=== PATIENT | female | born 1990 | race Two or more races ===

== ENCOUNTER 2023-06-16 14:49 | Outpatient (CLI) | payer OTHER | END 2023-06-16 14:50 | disposition home or self-care (01) | LOC: PRENATAL 14:49 | PROVIDERS: ATTEND Obstetrics & Gynecology Maternal & Fetal Medicine | DX: O36.80X0 Pregnancy with inconclusive fetal viability, not applicable or unspecified (principal); O26.20 Pregnancy care for patient with recurrent pregnancy loss, unspecified trimester; O99.280 Endocrine, nutritional and metabolic diseases complicating pregnancy, unspecified trimester; Z3A.01 Less than 8 weeks gestation of pregnancy ==

== ENCOUNTER 2023-06-23 06:16 | Emergency (ER) | payer OTHER ==
[~2023-06-23] VITALS: Ht 157.5 cm; Wt 80.7 kg
[2023-06-23] MEDS ORDERED: SYNTHROID150 MCG PO (06:27)
[2023-06-23 08:06] LABS: HEMATOCRIT 34.7 % (36.0-45.00); HEMOGLOBIN 12.2 g/dL (12.0-15.00); MEAN CELL VOLUME 94.2 fL (80.00-100.00); PLATELET COUNT 265 K/uL (150-450); RED BLOOD COUNT 3.69 M/uL (4.00-6.00); RED CELL DISTRIBUTION WIDTH 15.7 % (11.5-14.5)
[2023-06-23 08:23] LABS: URINE APPEARANCE Cloudy; URINE BILIRRUBIN Small (NEGATIVE); URINE BLOOD Large; URINE COLOR Orange; URINE GLUCOSE Negative (NEGATIVE); URINE LEUKOCYTE Small; URINE NITRATE Negative; URINE UROBILINOGEN 0.2 E.U./dl
[2023-06-23 08:27] LABS: URINE EPITHELIAL CELLS 14.6 uL (0.0-38.8); URINE WBC 99.8 uL (0.0-23.2)
[2023-06-23 08:30] LABS: URINE PROTEIN 100 (NEGATIVE)
[2023-06-23 08:34] LABS: INR 1.22; PARTIAL THROMBOPLASTIN TIME 26.5 SECONDS (22.0-34.0); PROTHROMBIN TIME 12.6 SECONDS (9.0-11.5)
[2023-06-23 09:03] LABS: CALCIUM 8.7 mg/dL (8.5-10.1); CREATININE SERUM 0.7 mg/dL (0.55-1.02); GFR 95.79; POTASSIUM 3.67 mEq/L (3.5-5.1)
== END 2023-06-24 09:37 | disposition home or self-care (01) ==
LOC: ER 06:16
PROVIDERS: General Practice
DX: O20.8 Other hemorrhage in early pregnancy (principal); Z3A.08 8 weeks gestation of pregnancy; Z91.040 Latex allergy status

== ENCOUNTER 2023-10-04 11:56 | Outpatient (CLI) | payer OTHER ==
[~2023-10-04 11:56] MED LIST: SYNTHROID150 MCG PO
== END 2023-10-04 11:57 | disposition home or self-care (01) ==
LOC: PRENATAL 11:56
PROVIDERS: ATTEND Obstetrics & Gynecology Maternal & Fetal Medicine
DX: O36.80X0 Pregnancy with inconclusive fetal viability, not applicable or unspecified (principal); O26.20 Pregnancy care for patient with recurrent pregnancy loss, unspecified trimester; O26.859 Spotting complicating pregnancy, unspecified trimester; O09.529 Supervision of elderly multigravida, unspecified trimester; O99.280 Endocrine, nutritional and metabolic diseases complicating pregnancy, unspecified trimester; Z3A.01 Less than 8 weeks gestation of pregnancy

== ENCOUNTER 2024-12-05 14:30 | Inpatient (IN) | payer OTHER ==
[~2024-12-05] VITALS: Ht 157.5 cm; Wt 74.8 kg
[2024-12-05] MEDS ORDERED: IRON325 MG (15:30)
--- NOTE | 2024-12-05 15:30 | NUR ---
PACIENTE ALERTA Y ORIENTADA X 3. REFIERE DOLOR DE JCARLOS, CORPORAL Y RESULTADO DE HGB EN 5.60 HEMATO 17.10 Y PLAQUETAS EN 162.00 RESULTADO DE HOY. PACIENTE REFIERE PADECER DE DE PROBLEMAS EN LA LEXY. PACIENTE CON DOCUMENTO QUE INDICA (IF TRANSFUSION IS REQUIRED SHE WILL NEED IhA DEFICIENTE DONORS)
[2024-12-05 17:36] LABS: INR 1.31; PARTIAL THROMBOPLASTIN TIME 24.2 SECONDS (22.0-34.0)
[2024-12-05 17:39] LABS: URINE APPEARANCE Cloudy; URINE BILIRRUBIN Negative (NEGATIVE); URINE BLOOD Negative; URINE COLOR Yellow; URINE GLUCOSE Negative (NEGATIVE); URINE KETONE Negative (NEGATIVE); URINE LEUKOCYTE Moderate; URINE NITRATE Negative; URINE PROTEIN Negative (NEGATIVE)
[2024-12-05 17:40] LABS: ALBUMIN 3.7 gm/dL (3.4-5.0); BILIRUBIN TOTAL 2.19 mg/dL (0.3-1.2); CALCIUM 8.6 mg/dL (8.5-10.1); CREATININE SERUM 0.74 mg/dL (0.55-1.02); GFR 88.8; GLOBULINA 3.7 G/DL (2.4-3.5); POTASSIUM 3.87 mEq/L (3.5-5.1); TOTAL PROTEIN 7.4 gm/dL (6.4-8.2)
[2024-12-05 17:43] LABS: URINE WBC 234.4 uL (0.0-23.2)
[2024-12-05 17:52] LABS: COVID-19 AG NEGATIVE (NEGATIVE)
[2024-12-05 17:55] LABS: MEAN CELL VOLUME 102.1 fL (80.00-100.00); MEAN CORPUSCULAR HGB CONC 32.4 g/dl (32.0-36.0); PLATELET COUNT 168 K/uL (150-450); RED BLOOD COUNT 1.72 M/uL (4.00-6.00)
[2024-12-05 18:00] LABS: MEAN CORPUSCULAR HEMOGLOBIN 33.1 pg (27.00-32.0)
[2024-12-05 18:01] LABS: HEMOGLOBIN 5.7 g/dL (12.0-15.00)
[2024-12-05 18:02] LABS: HEMATOCRIT 17.5 % (36.0-45.00); RED CELL DISTRIBUTION WIDTH 19.6 % (11.5-14.5)
[2024-12-05 18:13] LABS: URINE BACTERIA > 9821.5 uL (0.0-1933); URINE EPITHELIAL CELLS > 201.7 uL (0.0-38.8); URINE RBC 1.3 uL (0.0-20.8)
[2024-12-05] MEDS ORDERED: 0.9 % SODIUM CHLORIDE 1,000 ML IV SCH (20:30)
[2024-12-05] MEDS ORDERED: IRON FUM,PS/FOLIC/BCOMP,C NO.9 1 CAP CAPSULE PO SCH (20:31)
[2024-12-05] MEDS ORDERED: SOD FERRIC GLUC COMPLX/SUCROSE 62.5 MG in 0.9 % SODIUM CHLORIDE 50 ML IV SCH (20:32)
[2024-12-05] MEDS ORDERED: ACETAMINOPHEN 500 MG GEL..CAP PO PRN (20:45)
[2024-12-06 00:21] VITALS: BP 120/70; O2SAT 100
[2024-12-06] MEDS ORDERED: LEVOTHYROXINE SODIUM 300 MCG PO SCH (06:00)
[2024-12-06 07:14] VITALS: BP 110/78; O2SAT 99
[2024-12-06] MEDS ORDERED: PANTOPRAZOLE SODIUM 40 MG/VIAL VIAL IV SCH (09:00)
[2024-12-06 16:00] VITALS: BP 105/68; O2SAT 99
[2024-12-06] MEDS ORDERED: Cyanocobalamin/Mecobalamin 1 TAB.SL SL SCH (20:10)
[2024-12-07 00:56] VITALS: BP 96/52; O2SAT 100
[2024-12-07 08:00] VITALS: BP 113/73; O2SAT 100
[2024-12-07 16:00] VITALS: BP 102/61; O2SAT 98
[2024-12-07 16:12] LABS: ob NEGATIVE (NEGATIVE)
[2024-12-08 00:28] VITALS: BP 91/54; O2SAT 100
[2024-12-08] MEDS ORDERED: DIPHENHYDRAMINE HCL 50 MG/ML VIAL 1ML IV STA (01:54)
[2024-12-08] MEDS ORDERED: DIPHENHYDRAMINE HCL 50 MG/ML VIAL 1ML IV SCH (02:00)
[2024-12-08 08:00] VITALS: BP 108/70; O2SAT 99
[2024-12-08] MEDS ORDERED: METHYLPREDNISOLONE SOD SUCC 40 MG VIAL IV SCH (09:45)
[2024-12-08 16:31] VITALS: BP 126/65; O2SAT 100
[2024-12-08] MEDS ORDERED: PREDNISONE 20 MG TABLET PO SCH (17:00)
[2024-12-09 00:27] VITALS: BP 103/62; O2SAT 100
[2024-12-09 08:05] LABS: PLATELET ESTIMATE NORMAL (NORMAL)
[2024-12-09 08:27] VITALS: BP 102/64; O2SAT 100
[2024-12-09 17:00] VITALS: BP 108/71; O2SAT 98
[2024-12-09 18:24] LABS: HEMATOCRIT 28.9 % (36.0-45.00); MEAN CELL VOLUME 92.3 fL (80.00-100.00); RED BLOOD COUNT 3.13 M/uL (4.00-6.00); RED CELL DISTRIBUTION WIDTH 19.9 % (11.5-14.5)
[2024-12-09 18:46] LABS: HEMOGLOBIN 9.5 g/dL (12.0-15.00); MEAN CORPUSCULAR HEMOGLOBIN 30.3 pg (27.00-32.0); PLATELET COUNT 109 K/uL (150-450)
[2024-12-10] VITALS: BP 111/70; O2SAT 97
[2024-12-10] MEDS ORDERED: LEVOTHYROXINE SODIUM 200 MCG TABLET PO ONE (01:15)
[2024-12-10] MEDS ORDERED: LEVOTHYROXINE SODIUM 100 MCG TABLET PO ONE (01:15)
[2024-12-10 08:00] VITALS: BP 107/69; O2SAT 98
[2024-12-10] MEDS ORDERED: PREDNISONE20 MG PO (13:55)
[2024-12-10] MEDS ORDERED: PROTONIX40 MG PO (13:55)
== END 2024-12-10 14:55 | disposition home or self-care (01) | DRG 815 ==
LOC: ER 14:31 → SEC-K 21:03 → SURH 12-06 10:52
PROVIDERS: Emergency Medicine; Internal Medicine Hematology & Oncology; ADMIT Internal Medicine; ATTEND Internal Medicine
PROC: BU4CZZZ Ultrasonography of Uterus and Ovaries (ICD-10-PCS; principal; 2024-12-05)
PROC: BW40ZZZ Ultrasonography of Abdomen (ICD-10-PCS; 2024-12-07)
PROC: 30233N1 Transfusion of Nonautologous Red Blood Cells into Peripheral Vein, Percutaneous Approach (ICD-10-PCS; 2024-12-08)
DX: D80.2 Selective deficiency of immunoglobulin A [IgA] (principal); D59.19 Other autoimmune hemolytic anemia; D68.61 Antiphospholipid syndrome; N91.2 Amenorrhea, unspecified; E03.8 Other specified hypothyroidism

== ENCOUNTER 2025-03-19 07:33 | Outpatient (CLI) | payer OTHER ==
[~2025-03-19 07:33] MED LIST changes: +IRON325 MG; +PREDNISONE20 MG PO; +PROTONIX40 MG PO
== END 2025-03-19 07:35 | disposition home or self-care (01) ==
LOC: SONOGRAMA 07:33
PROVIDERS: ATTEND Internal Medicine Hematology & Oncology
DX: R16.2 Hepatomegaly with splenomegaly, not elsewhere classified (principal); D59.10 Autoimmune hemolytic anemia, unspecified

== ENCOUNTER 2025-04-29 11:00 | Day surgery (SDC) | payer OTHER ==
[2025-04-23 08:14] VITALS: BP 107/69
[2025-04-23 08:43] LABS: BASO % 0.5 % (0.1-1.2); EOS # 0.07 (0.04-0.54); EOS % 1.1 % (0.7-7.0); LYMPH # 0.83 (1.18-3.74); LYMPH % 12.8 % (19.3-53.1); MEAN PLATELET VOLUME 11.10 fl (9.4-12.4); MONO # 0.27 (0.24-0.82); MONO % 4.2 % (4.7-12.5); NEUT # 5.26 (1.56-6.13); NEUT % 81.1 % (34.0-71.1); RED CELL DISTRIBUTION WIDTH 13.8 % (11.6-14.4)
[2025-04-23 08:44] LABS: URINE APPEARANCE Cloudy; URINE BILIRRUBIN Negative (NEGATIVE); URINE BLOOD Negative; URINE COLOR Dark Yellow; URINE GLUCOSE Negative (NEGATIVE); URINE KETONE Trace (NEGATIVE); URINE LEUKOCYTE Small; URINE NITRATE Negative; URINE PROTEIN Trace (NEGATIVE); URINE UROBILINOGEN 0.2 E.U./dl
[2025-04-23 08:49] LABS: URINE BACTERIA 3531.5 uL (0.0-1933); URINE EPITHELIAL CELLS 90.6 uL (0.0-38.8); URINE WBC 66.1 uL (0.0-23.2)
[2025-04-23 09:07] LABS: URINE CAST 0.00 uL (0.0-1.40); URINE RBC 1.3 uL (0.0-20.8)
[2025-04-23 09:20] LABS: RH POSITIVE
[2025-04-23 09:42] LABS: INR 1.19
[2025-04-23 09:54] LABS: ALT/SGPT 50.0 U/L (12-78); AST/SGOT 29.0 U/L (15-37); BILIRUBIN TOTAL 0.76 mg/dL (0.3-1.2); BUN CREA RATIO 15.0 (7.0-25.0); CREATININE SERUM 0.6 mg/dL (0.55-1.02); GFR 113.11; GLOBULINA 3.4 G/DL (2.4-3.5); GLUCOSE FASTING 66.0 mg/dL (65-100); OSMOLALITY SERUM 284.0 MOSM/KG (275-295)
[2025-04-23 10:03] LABS: TSH 0.012 uIU/mL (0.358-3.74)
[~2025-04-29] VITALS: Ht 157.5 cm; Wt 74.8 kg
[~2025-04-29 11:00] MED LIST changes: +ACIDO FOLICO; +ADULT LOW DOSE81 M1; +CEFAZOLIN SODIUM 1,000 MG VIAL ONE; +SYNTHROID300 MCG; +ZYRTEC10 MG PO
== END 2025-04-29 11:30 | disposition home or self-care (01) ==
LOC: SURG 11:00 → CIR.AMB 11:00 → O/R 11:00 → CIR.AMB 11:30
PROVIDERS: ATTEND Specialist
DX: D59.10 Autoimmune hemolytic anemia, unspecified (principal); Z53.09 Procedure and treatment not carried out because of other contraindication

== ENCOUNTER 2025-05-14 07:45 | Inpatient (IN) | payer OTHER ==
[~2025-05-14] VITALS: Ht 61 cm; Wt 74.8 kg
[~2025-05-14 07:45] MED LIST changes: -CEFAZOLIN SODIUM 1,000 MG VIAL ONE
[2025-05-14 09:27] LABS: BASO % 0.6 % (0.1-1.2); EOS # 0.08 (0.04-0.54); EOS % 1.5 % (0.7-7.0); LYMPH # 0.94 (1.18-3.74); LYMPH % 17.4 % (19.3-53.1); MEAN PLATELET VOLUME 10.80 fl (9.4-12.4); MONO # 0.44 (0.24-0.82); MONO % 8.1 % (4.7-12.5); NEUT # 3.90 (1.56-6.13); NEUT % 72.0 % (34.0-71.1); RED CELL DISTRIBUTION WIDTH 13.6 % (11.6-14.4)
[2025-05-14 09:35] LABS: URINE APPEARANCE Cloudy; URINE BILIRRUBIN Negative (NEGATIVE); URINE BLOOD Large; URINE COLOR Dark Yellow; URINE GLUCOSE Negative (NEGATIVE); URINE KETONE Negative (NEGATIVE); URINE LEUKOCYTE Trace; URINE NITRATE Negative; URINE PROTEIN 30 (NEGATIVE); URINE UROBILINOGEN 0.2 E.U./dl
[2025-05-14 09:36] LABS: URINE BACTERIA 2407.2 uL (0.0-1933); URINE EPITHELIAL CELLS 77.0 uL (0.0-38.8); URINE RBC 20.2 uL (0.0-20.8); URINE WBC 91.5 uL (0.0-23.2)
[2025-05-14 09:48] LABS: INR 1.22
[2025-05-14 09:51] LABS: URINE CAST 0.29 uL (0.0-1.40)
[2025-05-14 09:52] LABS: URINE MUCUS MODERATE
[2025-05-14 10:41] LABS: ALT/SGPT 51 U/L (12-78); AST/SGOT 27 U/L (15-37); BILIRUBIN TOTAL 0.80 mg/dL (0.3-1.2); BUN CREA RATIO 18 (7.0-25.0); CREATININE SERUM 0.57 mg/dL (0.55-1.02); GFR 120.01; GLOBULINA 3.1 G/DL (2.4-3.5); GLUCOSE FASTING 75 mg/dL (65-100); OSMOLALITY SERUM 285 MOSM/KG (275-295)
[2025-05-14 10:51] LABS: TSH < 0.005 uIU/mL (0.358-3.74)
[2025-05-20] MEDS ORDERED: CEFAZOLIN SODIUM 1,000 MG VIAL ONE (11:17)
[2025-05-20] MEDS ORDERED: CEFAZOLIN SODIUM 1,000 MG VIAL IV ONE (13:30)
[2025-05-20] MEDS ORDERED: SUGAMMADEX SODIUM 200 MG/2 ML VIAL IV ONE (15:45)
[2025-05-20] MEDS ORDERED: POTASSIUM CHLORIDE-0.45% NACL 20 MEQ/1,000 ML PIGGYBAG IV NR (16:30)
[2025-05-20] MEDS ORDERED: MORPHINE SULFATE 4 MG/ML CARTRIDGE IV PRN (16:45)
[2025-05-20] MEDS ORDERED: CIPROFLOXACIN IN 5 % DEXTROSE 400 MG/200 ML PIGGYBAG IV ONE ×2 (17:39→20:19)
[2025-05-20 18:26] LABS: BASO % 0.2 % (0.1-1.2); EOS # 0.00 (0.04-0.54); EOS % 0.0 % (0.7-7.0); LYMPH # 0.66 (1.18-3.74); LYMPH % 3.8 % (19.3-53.1); MEAN PLATELET VOLUME 10.70 fl (9.4-12.4); MONO # 1.05 (0.24-0.82); MONO % 6.0 % (4.7-12.5); NEUT # 15.73 (1.56-6.13); NEUT % 89.7 % (34.0-71.1); RED CELL DISTRIBUTION WIDTH 13.3 % (11.6-14.4)
[2025-05-20] MEDS ORDERED: CIPROFLOXACIN IN 5 % DEXTROSE 400 MG/200 ML PIGGYBAG IV SCH (21:00)
[2025-05-21 00:28] VITALS: BP 130/87; O2SAT 98
[2025-05-21 06:51] LABS: BASO % 0.3 % (0.1-1.2); EOS # 0.00 (0.04-0.54); EOS % 0.0 % (0.7-7.0); LYMPH # 0.75 (1.18-3.74); LYMPH % 4.3 % (19.3-53.1); MEAN PLATELET VOLUME 11.50 fl (9.4-12.4); MONO # 1.13 (0.24-0.82); MONO % 6.5 % (4.7-12.5); NEUT # 15.40 (1.56-6.13); NEUT % 88.5 % (34.0-71.1); RED CELL DISTRIBUTION WIDTH 13.6 % (11.6-14.4)
[2025-05-21 07:29] LABS: ALT/SGPT 38.0 U/L (12-78); AST/SGOT 25.0 U/L (15-37); BILIRUBIN TOTAL 1.03 mg/dL (0.3-1.2); BUN CREA RATIO 11.0 (7.0-25.0); CREATININE SERUM 0.44 mg/dL (0.55-1.02); GFR 161.79; GLOBULINA 2.6 G/DL (2.4-3.5); GLUCOSE FASTING 89.0 mg/dL (65-100); OSMOLALITY SERUM 276.0 MOSM/KG (275-295)
[2025-05-21 07:40] VITALS: BP 119/79; O2SAT 94
[2025-05-21] MEDS ORDERED: PHENOL 177 ML BOTTLE MM SCH (09:00)
[2025-05-21 16:54] VITALS: BP 130/82; O2SAT 95
[2025-05-22 00:53] VITALS: BP 130/77; O2SAT 94
[2025-05-22] MEDS ORDERED: BISACODYL 10 MG/SUPP.RECT SUPP.RECT RECTAL ONE (06:45)
[2025-05-22 07:11] LABS: BASO % 0.4 % (0.1-1.2); EOS # 0.01 (0.04-0.54); EOS % 0.0 % (0.7-7.0); LYMPH # 0.89 (1.18-3.74); LYMPH % 3.4 % (19.3-53.1); MEAN PLATELET VOLUME 12.80 fl (9.4-12.4); MONO # 1.77 (0.24-0.82); MONO % 6.8 % (4.7-12.5); NEUT # 23.06 (1.56-6.13); NEUT % 88.7 % (34.0-71.1); RED CELL DISTRIBUTION WIDTH 13.7 % (11.6-14.4)
[2025-05-22 07:57] LABS: BUN CREA RATIO 10.0 (7.0-25.0); CREATININE SERUM 0.39 mg/dL (0.55-1.02); GFR 185.96; GLUCOSE FASTING 74.0 mg/dL (65-100); OSMOLALITY SERUM 275.0 MOSM/KG (275-295)
[2025-05-22 08:00] VITALS: BP 108/66; O2SAT 96
[2025-05-22 16:33] VITALS: BP 105/64
[2025-05-22] MEDS ORDERED: OxyCODONE HCL 5 MG TABLET (ROXICODONE) PO STA (18:41)
[2025-05-22] MEDS ORDERED: OxyCODONE HCL 5 MG TABLET (ROXICODONE) PO PRN (18:45)
[2025-05-23 01:14] VITALS: BP 115/79; O2SAT 95
== END 2025-05-23 13:47 | disposition home or self-care (01) | DRG 801 ==
LOC: SURH 05-20 07:45 → O/R 05-20 10:00 → SURG 05-20 10:00 → SURH 05-20 12:00 → SURG 05-20 16:37
PROVIDERS: ADMIT Specialist; ATTEND Specialist
PROC: 07BP0ZZ Excision of Spleen, Open Approach (ICD-10-PCS; principal; 2025-05-20 14:00)
DX: D59.10 Autoimmune hemolytic anemia, unspecified (principal); E03.9 Hypothyroidism, unspecified